=== PATIENT | female | born 1945 | race Native Hawaiian/Other Pacific Islander ===

== ENCOUNTER 2022-04-12 19:30 | Emergency (ER) | payer OTHER ==
[~2022-04-12] VITALS: Ht 154.9 cm; Wt 55.5 kg
[2022-04-12 19:30] VITALS: BP 138/51; TEMP 98.8
[2022-04-12 19:44] LABS: PLATELET COUNT 182 K/uL (152-353)
[2022-04-12 19:54] LABS: POTASSIUM 3.9 mmol/L (3.6-5.2)
[2022-04-13] MEDS ORDERED: AMLO2.5T PO (06:51)
[2022-04-13] MEDS ORDERED: ESCI10TA PO (06:52)
[2022-04-13] MEDS ORDERED: DONE5TAB PO (06:52)
[2022-04-13] MEDS ORDERED: FURO40TA93 PO (06:53)
[2022-04-13] MEDS ORDERED: I-VITE PO (06:53)
[2022-04-13] MEDS ORDERED: LATA0.00 OPTH (06:54)
[2022-04-13] MEDS ORDERED: ASCO500T18 PO (06:55)
[2022-04-13] MEDS ORDERED: DIVA250T PO (06:58)
[2022-04-13] MEDS ORDERED: LORA0.5T17 PO (07:01)
== END 2022-04-12 20:34 | disposition still patient (30) ==
LOC: ED 19:30
PROVIDERS: Hospitalist
DX: F25.8 Other schizoaffective disorders (principal); Z11.52 Encounter for screening for COVID-19; Z04.6 Encounter for general psychiatric examination, requested by authority
CPT/HCPCS: 80053; 85027; 87635; 93005; 99283; U0003